=== PATIENT | female | born 1950 | race Caucasian/White ===

== ENCOUNTER → 2016-08-23 | Outpatient (CLI) | payer BC ==
[2016-08-23 15:44] LABS: CH 31.7; CHCM 33.4; HCT 43.5 % (34.0-46.0); HDW 2.27; HGB 14.6 gm/dL (11.4-16.0); MCHC 33.5 g/dL (31.0-37.0); MCV 95.5 fL (80.0-100.0); Mean Platelet Volume 7.3; RBC 4.55 m/uL (3.80-5.40); RDW 12.6 % (11.5-15.5); WBC 10.4 k/uL (3.8-10.6)
== END | disposition home or self-care (01) ==
LOC: LABPAT 14:44
PROVIDERS: ATTEND Otolaryngology
DX: Z01.812 Encounter for preprocedural laboratory examination (principal)
CPT/HCPCS: 85027

== ENCOUNTER 2016-08-28 11:05 | Day surgery (SDC) | payer BC ==
[2016-08-24 11:14] VITALS: BMI 38.0
--- NOTE | 2016-08-28 07:42 | HP ---
DATE OF ADMISSION: Chief complaint is chronic laryngitis with laryngeal lesion. HISTORY OF PRESENT ILLNESS: This patient is a very pleasant 66-year-old female who is well known to my office. She has a long history of chronic laryngitis and recurrent laryngeal lesions. In addition to this, patient has a history of gastroesophageal reflux disorder. On a recent visit, she was complaining of having increased hoarseness over the past several months which had been exacerbated by a recent upper respiratory tract infection. She was taken to surgery approximately a year ago and at that time a cystic lesion which was infected with a fungal-like material was excised. At the time that she was seen in my office, clinical examination included indirect laryngoscopy revealed a suspicious lesion of the larynx which was not completely visualized because of an overhanging epiglottis. Because of the patient's past history of such lesions, it was recommended that she undergo a suspension microlaryngoscopy with excision ( ) vaporization of the lesion of the larynx as well as biopsy. Past medical history reveals patient's has allergies to FIORICET, AVELOX, LEVAQUIN, and CIPRO. Current medications include: 1. Zoloft. 2. Levothyroxine. There is no history of asthma, diabetes mellitus, hypertension. Review of systems positive in respect to the metabolic endocrine system which is positive for hypothyroidism. The remainder of the review of systems is unremarkable. Previous surgeries include bilateral myringotomy with insertion of ventilation tubes, tonsillectomy, adenoidectomy, appendectomy, left knee replacement, suspension microlaryngoscopy with biopsy. The patient is 4 para, 4 , 0 miscarriage and DFC x1. PHYSICAL EXAMINATION: Patient is a pleasant 66-year-old female who is alert and cooperative. HEENT EXAMINATION: Patient is normocephalic, tympanic membranes are normal. Middle ear spaces are free of any fluid or infection. Pupils equal, round and reactive to light and accommodation. Extraocular movements within normal limits. Intranasal examination reveals moderate septal deviation and compensatory hypertrophy of the inferior turbinates. Examination of the oropharynx is unremarkable. Indirect laryngoscopy is as described above in the history of present illness and will not be repeated her. Palpation of the neck, cranial nerves 2 through 12 and remainder of the head and neck exam is within normal limits. CHEST/CARDIOVASCULAR: Both lung tripp are clear to percussion and auscultation. Patient is in regular sinus rhythm. S1 and S2 are present without murmurs, S3s or S4s. Peripheral pulses are bilaterally symmetrical and within normal limits. ABDOMEN: There is no evidence of any masses, megaly or tenderness. Abdomen is soft. Skin is unremarkable. MUSCULOSKELETAL/NEUROLOGICAL are within normal limits. PELVIC/RECTAL EXAM: This is deferred at this time because patient has this done on a regular basis at her family physician's office. The remainder of the physical exam is unremarkable. IMPRESSION: Chronic laryngitis with laryngeal lesion. PLAN: The patient is scheduled to undergo a suspension microlaryngoscopy with biopsy of laryngeal lesion and also CO2 laser vaporization of laryngeal lesion under general anesthesia. Attention RN's in the presurgical area: This patient has an order to received 1000 mg of Ofirmev IV to be given one an intravenous lines has been established. I have not ordered any prophylactic antibiotics such as Ancef or Flagyl. If either one of these medications or any other medication has been ordered in my name, please cancel it, return it to pharmacy and make sure the patient's account is credited. Again, I have not ordered any prophylactic antibiotics for this particular case. I have explained the operation/procedure to the patient, including the risks, benefits, side effects, alternative therapies (including not receiving the proposed treatment or service), the likelihood of the patient achieving his/her goals, and potential recuperation problems for the procedure/sedation/analgesia, as well as any blood products, if indicated. I also explained to the patient the risks, benefits, and side effects of the alternatives, as well as the risks related to not receiving the proposed procedure, care treatment or services.
[~2016-08-28 11:05] MED LIST: FAMOTIDINE 20 MG/2 ML VIAL IV PRN; HYDROmorphone 1 MG/ML 1 ML SYRINGE IVP PRN; LACTATED RINGERS 1,000 ML IV SCH; MIDAZOLAM 2 MG/2 ML VIAL IV PRN; ONDANSETRON 4 MG/2 ML VIAL IVP PRN; Pre Op ABX Message 1 EACH MISC MISCELLANE ONE
[2016-08-28] MEDS ORDERED: LIDOCAINE 1% 20 ML VIAL (10MG/ML) FOR IV START INTRADERMA ONE (11:52)
[2016-08-28] MEDS ORDERED: DEXAMETHASONE SOD PHOSPHATE 10 MG/ML 1 ML VIAL IV ONE (12:00)
[2016-08-28] MEDS ORDERED: ACETAMINOPHEN IV (For NPO) 1,000 MG in EMPTY BAG 1 BAG IVPB ONE (12:00)
[2016-08-28] MEDS ORDERED: SUCCINYLCHOLINE CHLORIDE 100 MG/5 ML SYR IV ONE (13:26)
[2016-08-28] MEDS ORDERED: MIDAZOLAM 2 MG/2 ML VIAL ONE (13:26)
[2016-08-28] MEDS ORDERED: GLYCOPYRROLATE 0.2 MG/ML 2 ML VIAL ONE (13:26)
[2016-08-28] MEDS ORDERED: PROPOFOL 10 MG/ML 20 ML VIAL IV ONE (13:26)
[2016-08-28] MEDS ORDERED: NEOSTIGMINE 1 MG/ML 10 ML VIAL ONE (13:26)
[2016-08-28] MEDS ORDERED: LIDOCAINE 1% INJ 10MG/ML (20 ML MDV) ONE (13:26)
[2016-08-28] MEDS ORDERED: fentaNYL (PF) 50 MCG/ML 2 ML AMP ONE (13:26)
[2016-08-28] MEDS ORDERED: DEXAMETHASONE SOD PHOS (MDV) 100 MG/10 ML VIAL ONE (13:26)
[2016-08-28] MEDS ORDERED: ROCURONIUM BROMIDE 10 MG/ML 10 ML VIAL IV ONE (13:26)
[2016-08-28] MEDS ORDERED: HYDROmorphone (PF) 1 MG/ML ONE (13:26)
[2016-08-28 14:34] VITALS: TEMP 97.2
[2016-08-28] MEDS ORDERED: LACTATED RINGERS 1,000 ML IV ONE (15:03)
[2016-08-28 15:57] VITALS: BP 139/81; PULSE 54; RESP 16
--- NOTE | 2016-08-29 05:35 | OP ---
DATE OF SERVICE: 08/28/2016 SURGEON: GRACE ESCUDERO MD KEY ENTRY OPERATOR: PREOPERATIVE DIAGNOSIS: Chronic laryngitis with laryngeal lesions/suspect polyps versus granulation tissue. POSTOPERATIVE DIAGNOSIS: Chronic laryngitis with laryngeal lesions/suspect polyps versus granulation tissue. OPERATION: Suspension microlaryngoscopy with biopsy of the anterior and posterior right true vocal cord and the anterior commissure and also CO2 laser vaporization of lesions of the anterior and posterior right true vocal cord and anterior commissure. ANESTHESIA: General. ESTIMATED BLOOD LOSS: SPECIMENS REMOVED: COMPLICATIONS: None. OPERATIVE FINDINGS: OPERATIVE PROCEDURE: The patient was placed on the operating table in the supine position. After uneventful induction and endotracheal intubation, satisfactory general anesthesia was obtained. Next, the patient was draped in the usual and customary fashion, following which, after insertion of a mouth guard the anterior commissure laryngoscope was introduced into the hypopharynx and the entire hypopharynx, including the right and left piriform sinus, base of tongue and epiglottis, were inspected and found to be free of any suspicious lesions. The tip of the laryngoscope was then presented at the laryngeal introitus and advanced in an atraumatic fashion. Next, the Lewy apparatus was attached to the handle of the laryngoscope and the laryngoscope was suspended on the patient's chest. 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 Therefore, biopsies were carried out of the anterior commissure, anterior right true vocal cord, and finally of the right posterior true vocal cord. These specimens were sent to pathology in separate containers in formalin for permanent sectioning. Next, using the advanced, CO2 laser on the appropriate standing with the 15-degree wand, the Kd's edema and left true vocal was addressed using CO2 laser to reduce the bulk of the left true vocal cord and in addition to this, the polypoid tissue noted in the anterior commissure in the anterior portion of the right true vocal cord in the posterior portion of the right true vocal cord were also vaporized using the CO2 laser. Care was taken not to laser the right true vocal cord to extensively especially since the left true vocal cord had been lasered. This was done so as to prevent any formation of any webs. No other suspicious lesions were discovered at this time and at this point, the procedure was terminated. The patient was given 10 mg of Decadron during the surgery to reduce any postoperative laryngeal edema. The patient tolerated the procedure well and was returned to the recovery room in satisfactory condition.
== END 2016-08-28 16:50 | disposition home or self-care (01) ==
LOC: OR 11:05
PROVIDERS: ATTEND Otolaryngology
DX: J37.0 Chronic laryngitis (principal); J38.3 Other diseases of vocal cords; E07.9 Disorder of thyroid, unspecified; M19.90 Unspecified osteoarthritis, unspecified site; Z79.52 Long term (current) use of systemic steroids; Z79.899 Other long term (current) drug therapy; Z88.1 Allergy status to other antibiotic agents
CPT/HCPCS: 88305; 31535; J2250; J1100 ×2; J2710; J2405; J2001; J3010; J1170; J0330; J2704; 88312

== ENCOUNTER 2017-05-13 11:47 | Observation (INO) | payer BC, MEDICARE ==
[2017-05-13] MEDS ORDERED: SODIUM CHLORIDE 0.9% 1,000 ML IV STA (11:59)
--- NOTE | 2017-05-13 12:06 | ED ---
General Adult HPI - General Chief complaint: Chest Pain Stated complaint: CHEST PAIN, NO Hx Time Seen by Provider: 05/13/17 11:58 Source: patient, RN notes reviewed, old records reviewed Mode of arrival: wheelchair Limitations: no limitations - History of Present Illness Initial comments: This is a 67-year-old female to the ER for evaluation. Patient presents today for evaluation regards to chest pain. Patient has severe anterior chest pain left jaw pain left arm pain and shoulder pain. Patient has no underlying cardiac risk factors. Nonsmoker no strong family history. Patient states pain started prior to arrival, and has progressed. No nausea no vomiting. No fevers cough or congestion. No recent travel history - Related Data Home Medications Medication Instructions Recorded Confirmed Fish Oil/Dha/Epa [Fish Oil 1,200 1,600 mg PO DAILY 08/31/15 05/13/17 mg Fish Oil] Levothyroxine Sodium [Synthroid] 200 mcg PO DAILY 08/31/15 05/13/17 Sertraline [Zoloft] 50 mg PO DAILY 08/31/15 05/13/17 Aspirin EC [Ecotrin Low Dose] 162 mg PO ONCE 05/13/17 05/13/17 Cetirizine HCl [Zyrtec] 10 mg PO HS 05/13/17 05/13/17 Allergies Allergy/AdvReac Type Severity Reaction Status Date / Time moxifloxacin HCl Allergy Anaphylaxis Verified 05/13/17 13:11 [From Avelox] Review of Systems ROS Statement: Those systems with pertinent positive or pertinent negative responses have been documented in the HPI. ROS Other: All systems not noted in ROS Statement are negative. 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 History of Any Multi-Drug Resistant Organisms: None Reported Past Surgical History: Appendectomy, Heart Catheterization, Joint Replacement, Tonsillectomy Additional Past Surgical History / Comment(s): L knee Replacement Past Anesthesia/Blood Transfusion Reactions: No Reported Reaction Past Psychological History: Anxiety Smoking Status: Never smoker Past Alcohol Use History: None Reported Past Drug Use History: None Reported - Past Family History Mother Family Medical History: Cancer Additional Family Medical History / Comment(s): Breast Father Family Medical History: Cancer Additional Family Medical History / Comment(s): LUNG CANCER General Exam Limitations: no limitations General appearance: alert, in no apparent distress, anxious Head exam: Present: atraumatic, normocephalic, normal inspection Eye exam: Present: normal appearance, PERRL, EOMI. Absent: scleral icterus, conjunctival injection, periorbital swelling ENT exam: Present: normal exam, mucous membranes moist Neck exam: Present: normal inspection. Absent: tenderness, meningismus, lymphadenopathy Respiratory exam: Present: normal lung sounds bilaterally. Absent: respiratory distress, wheezes, rales, rhonchi, stridor Cardiovascular Exam: Present: regular rate, normal rhythm, normal heart sounds. Absent: systolic murmur, diastolic murmur, rubs, gallop, clicks GI/Abdominal exam: Present: soft, normal bowel sounds. Absent: distended, tenderness, guarding, rebound, rigid Extremities exam: Present: normal inspection, full ROM, normal capillary refill. Absent: tenderness, pedal edema, joint swelling, calf tenderness Back exam: Present: normal inspection Neurological exam: Present: alert, oriented X3, CN II-XII intact Psychiatric exam: Present: normal affect, normal mood Skin exam: Present: warm, dry, intact, normal color. Absent: rash Course Vital Signs 05/13/17 05/13/17 05/13/17 11:51 12:04 12:30 Temperature 97.3 F L Pulse Rate 66 69 65 Respiratory 18 18 16 Rate Blood Pressure 181/107 210/98 168/81 O2 Sat by Pulse 95 97 97 Oximetry 05/13/17 05/13/17 13:15 14:46 Temperature Pulse Rate 62 65 Respiratory 18 16 Rate Blood Pressure 169/82 139/73 O2 Sat by Pulse 93 L 97 Oximetry - Reevaluation(s) Reevaluation #1: 05/13/17 14:51 Patient remains a chest pain migrating chest pain at this time. No shortness of breath EKG Findings - EKG Comments: EKG Findings:: EKG shows normal sinus rhythm of 64, UT 190, QRS 78, QTC 420 Medical Decision Making - Medical Decision Making 67 female to ER for evaluation of chest pain. Anterior chest pain radiates from jaw and arm to anterior chest, patient will be admitted for cardiology evaluation, initial CT troponin and EKG are negative. - Lab Data Result diagrams: 05/13/17 12:10 05/13/17 12:10 Lab Results 05/13/17 05/13/17 05/13/17 Range/Units 12:10 12:10 12:10 WBC 12.4 H (3.8-10.6) k/uL RBC 4.69 (3.80-5.40) m/uL Hgb 14.5 (11.4-16.0) gm/dL Hct 44.8 (34.0-46.0) % MCV 95.6 (80.0-100.0) fL MCH 30.9 (25.0-35.0) pg MCHC 32.4 (31.0-37.0) g/dL RDW 13.6 (11.5-15.5) % Plt Count 299 (150-450) k/uL Neutrophils % 65 % Lymphocytes % 26 % Monocytes % 6 % Eosinophils % 1 % Basophils % 1 % Neutrophils # 8.0 H (1.3-7.7) k/uL Lymphocytes # 3.2 (1.0-4.8) k/uL Monocytes # 0.8 (0-1.0) k/uL Eosinophils # 0.1 (0-0.7) k/uL Basophils # 0.1 (0-0.2) k/uL PT (9.0-12.0) sec INR (<1.2) APTT (22.0-30.0) sec D-Dimer (<0.60) mg/L FEU Sodium (137-145) mmol/L Potassium (3.5-5.1) mmol/L Chloride (98-107) mmol/L Carbon Dioxide (22-30) mmol/L Anion Gap mmol/L BUN (7-17) mg/dL Creatinine (0.52-1.04) mg/dL Est GFR (MDRD) Af Amer (>60 ml/min/1.73 sqM) Est GFR (MDRD) Non-Af (>60 ml/min/1.73 sqM) Glucose (74-99) mg/dL Calcium (8.4-10.2) mg/dL Magnesium (1.6-2.3) mg/dL Total Bilirubin (0.2-1.3) mg/dL AST (14-36) U/L ALT (9-52) U/L Alkaline Phosphatase (38-126) U/L Total Creatine Kinase 30 (30-135) U/L CK-MB (CK-2) 0.4 (0.0-2.4) ng/mL CK-MB (CK-2) Rel Index 1.3 Troponin I <0.012 (0.000-0.034) ng/mL Total Protein (6.3-8.2) g/dL Albumin (3.5-5.0) g/dL Lipase (23-300) U/L Blood Type O Positive Blood Type Recheck No Antibody Screen NEGATIVE Spec Expiration Date 05/16/2017230905/13/17 05/13/17 Range/Units 12:10 12:10 WBC (3.8-10.6) k/uL RBC (3.80-5.40) m/uL Hgb (11.4-16.0) gm/dL Hct (34.0-46.0) % MCV (80.0-100.0) fL MCH (25.0-35.0) pg MCHC (31.0-37.0) g/dL RDW (11.5-15.5) % Plt Count (150-450) k/uL Neutrophils % % Lymphocytes % % Monocytes % % Eosinophils % % Basophils % % Neutrophils # (1.3-7.7) k/uL Lymphocytes # (1.0-4.8) k/uL Monocytes # (0-1.0) k/uL Eosinophils # (0-0.7) k/uL Basophils # (0-0.2) k/uL PT 10.8 (9.0-12.0) sec INR 1.1 (<1.2) APTT 23.1 (22.0-30.0) sec D-Dimer 1.20 H (<0.60) mg/L FEU Sodium 138 (137-145) mmol/L Potassium 4.4 (3.5-5.1) mmol/L Chloride 104 (98-107) mmol/L Carbon Dioxide 25 (22-30) mmol/L Anion Gap 9 mmol/L BUN 15 (7-17) mg/dL Creatinine 0.70 (0.52-1.04) mg/dL Est GFR (MDRD) Af Amer >60 (>60 ml/min/1.73 sqM) Est GFR (MDRD) Non-Af >60 (>60 ml/min/1.73 sqM) Glucose 104 H (74-99) mg/dL Calcium 9.4 (8.4-10.2) mg/dL Magnesium 1.8 (1.6-2.3) mg/dL Total Bilirubin 0.5 (0.2-1.3) mg/dL AST 38 H (14-36) U/L ALT 49 (9-52) U/L Alkaline Phosphatase 98 (38-126) U/L Total Creatine Kinase (30-135) U/L CK-MB (CK-2) (0.0-2.4) ng/mL CK-MB (CK-2) Rel Index Troponin I (0.000-0.034) ng/mL Total Protein 7.9 (6.3-8.2) g/dL Albumin 3.9 (3.5-5.0) g/dL Lipase 53 (23-300) U/L Blood Type Blood Type Recheck Antibody Screen Spec Expiration Date - Radiology Data Radiology results: report reviewed (CTA chest negative for dissection or PE, ultrasound of lower extremity negative for DVT), image reviewed Critical Care Time Critical Care Time: Yes Total Critical Care Time: 31 Disposition Clinical Impression: Chest pain Disposition: ADMITTED IP TO THIS HOSP Condition: Undetermined Instructions: Chest Pain (ED) Referrals: Minesh Oliveros MD [Primary Care Provider] - 1-2 days
[2017-05-13] MEDS ORDERED: RX INFO: IV CONTRAST WAS GIVEN 1 EACH MISC MISCELLANE PRN (12:09)
[2017-05-13] MEDS ORDERED: ONDANSETRON 4 MG/2 ML VIAL IVP STA (12:09)
[2017-05-13] MEDS ORDERED: LABETALOL 5 MG/ML VIAL MDV IVP STA (12:09)
[2017-05-13] MEDS ORDERED: MORPHINE SULFATE 10 MG/ML SYRINGE IVP STA (12:09)
[2017-05-13 12:29] LABS: ALT 49 U/L (9-52); AST 38 U/L (14-36); Alkaline Phosphatase 98 U/L (38-126); Anion Gap 9 mmol/L; Blood Urea Nitrogen 15 mg/dL (7-17); Calcium 9.4 mg/dL (8.4-10.2); Carbon Dioxide 25 mmol/L (22-30); Chloride 104 mmol/L (98-107); Glucose 104 mg/dL (74-99); Magnesium 1.8 mg/dL (1.6-2.3); Non-African American GFR(MDRD) >60 (>60 ml/min/1.73 sqM); Potassium 4.4 mmol/L (3.5-5.1); Sodium 138 mmol/L (137-145); Total Bilirubin 0.5 mg/dL (0.2-1.3); Total Protein 7.9 g/dL (6.3-8.2)
[2017-05-13 12:31] LABS: Basophils # (A) 0.1 k/uL (0-0.2); Basophils % (A) 1 %; CHCM 32.6; Eosinophils # (A) 0.1 k/uL (0-0.7); Eosinophils % (A) 1 %; HCT 44.8 % (34.0-46.0); HDW 2.15; HGB 14.5 gm/dL (11.4-16.0); Luc # (Auto) 0.26; Luc % (Auto) 2; Lymphocytes # (A) 3.2 k/uL (1.0-4.8); Lymphocytes % (A) 26 %; MCH 30.9 pg (25.0-35.0); MCHC 32.4 g/dL (31.0-37.0); MCV 95.6 fL (80.0-100.0); Mean Platelet Volume 7.1; Monocytes # (A) 0.8 k/uL (0-1.0); Monocytes % (A) 6 %; Neutrophils % (A) 65 %; RBC 4.69 m/uL (3.80-5.40); RDW 13.6 % (11.5-15.5); WBC 12.4 k/uL (3.8-10.6); WBC (Perox) 11.56
[2017-05-13 12:32] LABS: INR 1.1 (<1.2); Partial Thromboplastin Time 23.1 sec (22.0-30.0); Prothrombin Time 10.8 sec (9.0-12.0)
[2017-05-13 12:44] LABS: Creatine Kinase 30 U/L (30-135)
[2017-05-13 12:56] LABS: Creatine Kinase MB 0.4 ng/mL (0.0-2.4); Troponin I <0.012 ng/mL (0.000-0.034)
--- NOTE | 2017-05-13 13:02 | CT ---
EXAMINATION TYPE: CT angio thoracic/abd aorta DATE OF EXAM: 05/13/2017 COMPARISON: EXAMINATION TYPE: CT angio thoracic/abd aorta DATE OF EXAM: 05/13/2017 COMPARISON: NONE HISTORY: pain between shoulder blades, severe back pain CT DLP: 2954.9 mGycm. Automated Exposure Control for Dose Reduction was Utilized. CONTRAST: CT scan of the thorax, abdomen and pelvis is performed without and with IV Contrast, patient injected with 100 mL of Omnipaque 350. FINDINGS: The lungs are clear. There is no significant axillary, internal mammary, mediastinal or hilar adenopathy. There is no pleural or pericardial fluid. The heart is not enlarged. The aorta is normal in caliber without evidence of dissection. Within the abdomen, the liver is enlarged measuring 21 cm. There is fatty infiltration of the liver. The spleen and gallbladder appear normal. Both adrenal glands appear normal. Both kidneys demonstrate function and appear morphologically normal. The pancreas is unremarkable. The bladder appears normal. The uterus and ovaries are unremarkable. There are scattered diverticula along the left side of the colon. There is no radiographic evidence o f diverticulitis. The appendix is not visualized with certainty. Small bowel loops are normal. There is no free fluid and no free air. There are degenerative changes in the hips, greater on the right than the left. There is mild hypertr ophic spondylosis within the spine. IMPRESSION: 1. NORMAL CTA OF THE AORTA. 2. HEPATOMEGALY AND FATTY INFILTRATION OF THE LIVER. 3. UNCOMPLICATED DIVERTICULOSIS OF THE LEFT SIDE OF THE COLON. 4. MILD DEGENERATIVE CHANGE WITHIN THE SPINE.
--- NOTE | 2017-05-13 14:19 | US ---
EXAMINATION TYPE: US venous doppler duplex LE DATE OF EXAM: 05/13/2017 2:11 PM COMPARISON: NONE CLINICAL HISTORY: Pain. Pain bilateral legs, chest pain, SOB SIDE PERFORMED: Bilateral TECHNIQUE: The lower extremity deep venous system is examined utilizing real time linear array sonog liset with graded compression, doppler sonography and color-flow sonography. VESSELS IMAGED: External Iliac Vein (EIV) Common Femoral Vein Deep Femoral Vein Greater Saphenous Vein * Femoral Vein Popliteal Vein Small Saphenous Vein * Proximal Calf Veins (* superficial vessels) *Technical limitations due to patient's body habitus and patient had a difficult time tolerating comp ressions Right Leg: No evidence of DVT. Complex anechoic area popliteal fossa = 6.8 x 2.5 x 2.5cm, probable m oderate-sized Rowe's cyst Left Leg: No evidence of DVT Grayscale, color doppler, spectral doppler imaging performed of the deep veins of the lower extremiti es. There is normal flow, compressibility, vascular waveforms. IMPRESSION: No ultrasound evidence for acute DVT in either lower extremity.
[2017-05-13] MEDS ORDERED: HEPARIN SODIUM,PORCINE 5,000 UNIT/ML 1 ML VIAL IV ONE (14:49)
[2017-05-13] MEDS ORDERED: ASPIRIN 81 MG PO STA (14:49)
[2017-05-13] MEDS ORDERED: NITROGLYCERIN SL TABS 0.4 MG TAB SUBLINGUAL PRN (14:49)
[2017-05-13] MEDS ORDERED: HEPARIN SODIUM,PORCINE/D5W PMX 25,000 UNIT in DEXTROSE/WATER 1 500ML.BAG IV SCH (15:00)
[2017-05-13 16:12] VITALS: BMI 44.5
[2017-05-13] MEDS: ACETAMINOPHEN TAB 500 MG TAB PO PRN ×2 (18:28→22:49)
[2017-05-13] MEDS: SODIUM CHLORIDE 0.9% 1,000 ML IV SCH (18:29)
[2017-05-13 18:30] LABS: Creatine Kinase 27 U/L (30-135)
[2017-05-13 18:44] LABS: Creatine Kinase MB 0.4 ng/mL (0.0-2.4); Troponin I <0.012 ng/mL (0.000-0.034)
[2017-05-13] MEDS: NITROGLYCERIN OINT 1 INCH/GM PACKET TOPICAL SCH ×2 (20:10→23:42)
[2017-05-13] MEDS: HEPARIN SODIUM,PORCINE 5,000 UNIT/ML 1 ML VIAL IV PRN (21:21)
[2017-05-14 00:25] LABS: Creatine Kinase 26 U/L (30-135)
[2017-05-14 00:38] LABS: Creatine Kinase MB 0.4 ng/mL (0.0-2.4); Troponin I <0.012 ng/mL (0.000-0.034)
[2017-05-14 03:12] LABS: Mean Platelet Volume 6.7
[2017-05-14] MEDS: HEPARIN SODIUM,PORCINE 5,000 UNIT/ML 1 ML VIAL IV PRN (03:29)
[2017-05-14 03:30] LABS: Cholesterol 154 mg/dL (<200); HDL Cholesterol 50 mg/dL (40-60)
[2017-05-14] MEDS: SODIUM CHLORIDE 0.9% 1,000 ML IV SCH (05:32)
[2017-05-14] MEDS: NITROGLYCERIN OINT 1 INCH/GM PACKET TOPICAL SCH (05:36)
[2017-05-14] MEDS ORDERED: ASPIRIN 325 MG TAB PO SCH (09:00)
[2017-05-14] MEDS ORDERED: AMINOPHYLLINE 500 MG/20 ML VIAL IV PRN (09:36)
[2017-05-14] MEDS ORDERED: REGADENOSON 0.4 MG/5 ML SYRINGE IV ONE (09:36)
--- NOTE | 2017-05-14 11:03 | ECHOF ---
Referral Reason: MEASUREMENTS -------- HEIGHT: 170.2 cm WEIGHT: 128.8 kg BP: 149/86 RVIDd: 3.5 cm (< 3.3) IVSd: 1.3 cm (0.6 - 1.1) LVIDd: 4.7 cm (3.9 - 5.3) LVPWd: 1.4 cm (0.6 - 1.1) IVSs: 1.9 cm LVIDs: 3.5 cm LVPWs: 1.6 cm LAESV Index (A-L): 20.39 ml/m Ao Diam: 3.7 cm (2.0 - 3.7) AV Cusp: 2.3 cm (1.5 - 2.6) LA Diam: 2.8 cm (2.7 - 3.8) MV EXCURSION: 18.069 mm (> 18.000) MV EF SLOPE: 137 mm/s (70 - 150) EPSS: 1.7 cm MV E Ubaldo: 0.67 m/s MV DecT: 259 ms MV A Ubaldo: 0.87 m/s MV E/A Ratio: 0.76 RAP: 5.00 mmHg RVSP: 11.77 mmHg FINDINGS -------- Sinus rhythm. This was a technically adequate study. The left ventricular size is normal. There is mild concentric left ventricular hypertrophy. Overa ll left ventricular systolic function is normal with, an EF between 55 - 60 %. The right ventricle is normal in size and function. Normal LA size by volume 22+/-6 ml/m2. The right atrium is normal in size. The aortic valve is trileaflet, and appears structurally normal. No aortic stenosis or regurgitation. The mitral valve is normal. There is trace mitral regurgitation. Trace tricuspid regurgitation present. Right ventricular systolic pressure is normal at < 35 mmHg. There is no evidence of pulmonary hypertension. The pulmonic valve was not well visualized. There is no pulmonic regurgitation present. The aortic root size is normal. IVC Not well visulized. There is no pericardial effusion. CONCLUSIONS -------- 1. Sinus rhythm. 2. This was a technically adequate study. 3. There is mild concentric left ventricular hypertrophy. 4. Overall left ventricular systolic function is normal with, an EF between 55 - 60 %. 5. Normal LA size by volume 22+/-6 ml/m2. 6. The aortic valve is trileaflet, and appears structurally normal. No aortic stenosis or regurgitati on. 7. There is trace mitral regurgitation. 8. Trace tricuspid regurgitation present. 9. Right ventricular systolic pressure is normal at < 35 mmHg. 10. The pulmonic valve was not well visualized. 11. There is no pulmonic regurgitation present. 12. The aortic root size is normal. 13. IVC Not well visulized. 14. There is no pericardial effusion. [employer] PARTS: Filemon Villafuerte RDCS
--- NOTE | 2017-05-14 12:24 | EST ---
EXERCISE STRESS AGE: 67 SEX: F HT: 5'8" WT: 297 PROTOCOL: Lexiscan Cardiolite Stress Test HEART RATE REST: 61 BLOOD PRESSURE REST: 147/93 MAXIMUM HEART RATE ACHIEVED: 78 MAXIMUM BLOOD PRESSURE: 161/109 85% MPHR: 132 100% MPHR: 155 INDICATIONS: Chest pain. CLINICAL INFORMATION: Baseline rhythm is sinus mechanism, rate of 61, normal axis, intervals, normal electrocardiogram. Baseline blood pressure 147/93 mmHg. Patient received injection of Lexiscan. Electrocardiograph monitoring revealed no evidence of diagnostic ischemic ST deviation. Cardiolite was injected per protocol. CONCLUSION: 1. Nondiagnostic electrocardiogram stress testing. 2. Nuclear images will be reported separately. MMODL / IJN: [id number] /
[2017-05-14] MEDS: ASPIRIN 81 MG PO SCH (12:30)
[2017-05-14] MEDS: LISINOPRIL 5 MG TAB PO SCH ×2 (12:30→19:52)
[2017-05-14] MEDS ORDERED: DHA PO SCH (12:45)
[2017-05-14] MEDS ORDERED: FISH OIL PO SCH (12:45)
[2017-05-14] MEDS ORDERED: EPA PO SCH (12:45)
[2017-05-14] MEDS: SERTRALINE 50 MG TAB PO SCH (13:20)
--- NOTE | 2017-05-14 13:30 | P.CRDCN ---
History of Present Illness Consult date: 05/14/17 History of present illness: This is a 67-year-old female with past medical history significant for hypothyroidism. She follows with Dr. Fraser as an outpatient. We have been asked to see her in consultation for complaints of chest pressure yesterday while at [employer]. She states this started as mild pulling type sensation to her left neck, shoulder, back and left upper chest. As the day progressed this seemed to get worse in intensity and was causing shortness of breath. She denies associated nausea, palpitations or diaphoresis. She cannot verbalize any alleviating factors and states movement makes it worse. At the time of my exam she is still complaining of tight feeling to left upper chest and neck. EKG reveals sinus mechanism with no acute ST or T-wave abnormality noted. Cardiac enzymes negative x3, BUN 15, Cr 0.7, potassium 4.4, magnesium 1.8, Hgb 14.5, D-dimer 1.2 CT of chest negative for PE. Blood pressure 149/86 with heart rate 63. Blood pressure has been consistently elevated since admission. Review of Systems CONSTITUTIONAL: Denies fever. Denies chills. EYES: Denies blurred vision. Denies vision changes. Denies eye pain. EARS, NOSE, MOUTH & THROAT: Denies headache. Denies sore throat. Denies ear pain. CARDIOVASCULAR: Complains of constant left upper chest pain. Denies shortness of breath. Denies orthopnea. Denies PND. Denies palpitations. RESPIRATORY: Denies cough. GASTROINTESTINAL: Denies abdominal pain. Denies diarrhea. Denies constipation. Denies nausea. Denies vomitng. MUSCULOSKELETAL: Denies myalgias. INTEGUMENTARY: Denies pruitis. Denies rash. NEUROLOGIC: Denies numbness. Denies tingling. Denies weakness. PSYCHIATRIC: Denies anxiety. Denies depression. ENDOCRINE: Denies fatigue. Denies weight change. Denies polydipsia. Denies polyurina. GENITOURINARY: Denies burning, hematuria or urgency with micturation. HEMATOLOGIC: Denies history of anemia. Denies bleeding. 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 History of Any Multi-Drug Resistant Organisms: None Reported Past Surgical History: Appendectomy, Heart Catheterization, Joint Replacement, Tonsillectomy Additional Past Surgical History / Comment(s): L knee Replacement Past Anesthesia/Blood Transfusion Reactions: No Reported Reaction Smoking Status: Never smoker - Past Family History Mother Family Medical History: Cancer Additional Family Medical History / Comment(s): Breast Father Family Medical History: Cancer Additional Family Medical History / Comment(s): LUNG CANCER Medications and Allergies Home Medications Medication Instructions Recorded Confirmed Type Fish Oil/Dha/Epa [Fish Oil 1,200 1,600 mg PO DAILY 08/31/15 05/13/17 History mg Fish Oil] Levothyroxine Sodium [Synthroid] 200 mcg PO DAILY 08/31/15 05/13/17 History Sertraline [Zoloft] 50 mg PO DAILY 08/31/15 05/13/17 History Aspirin EC [Ecotrin Low Dose] 162 mg PO ONCE 05/13/17 05/13/17 History Cetirizine HCl [Zyrtec] 10 mg PO HS 05/13/17 05/13/17 History Allergies Allergy/AdvReac Type Severity Reaction Status Date / Time moxifloxacin HCl Allergy Anaphylaxis Verified 05/13/17 13:11 [From Avelox] Physical Exam Vitals: Vital Signs Temp Pulse Pulse Resp BP BP Pulse Ox 05/14/17 08:00 98.0 F 63 18 149/86 94 L 05/14/17 07:44 92 L 05/14/17 04:00 18 05/14/17 03:36 98.8 F 59 L 18 164/78 92 L 05/13/17 23:40 18 05/13/17 23:26 98.3 F 66 18 157/77 90 L 05/13/17 20:00 16 05/13/17 19:17 98.4 F 62 16 153/90 93 L 05/13/17 16:49 98 05/13/17 15:38 97.8 F 63 18 148/70 94 L 05/13/17 15:24 66 16 140/80 97 05/13/17 14:46 65 16 139/73 97 05/13/17 13:15 62 18 169/82 93 L 05/13/17 12:30 65 16 168/81 97 05/13/17 12:04 69 18 210/98 97 05/13/17 11:51 97.3 F L 66 18 181/107 95 Intake and Output 05/13/17 05/14/17 05/14/17 22:59 06:59 14:59 Intake Total 236.789 6897.526 Balance 332.391 8341.526 Intake: IV 700 Heparin Sodium,Porcine/ 100 D5w Pmx 25,000 unit In Dextrose/Water 1 500ml. bag @ 7.73 UNITS/KG/HR 19 .98 mls/hr IV .Q24H [facility] Rx#:[id number] Sodium Chloride 0.9% 1, 600 000 ml @ 100 mls/hr IV . Q10H [facility] Rx#:[id number] Intake, IV Titration 118.881 171.526 Amount Heparin Sodium,Porcine/ 118.881 171.526 D5w Pmx 25,000 unit In Dextrose/Water 1 500ml. bag @ 7.73 UNITS/KG/HR 19 .98 mls/hr IV .Q24H [facility] Rx#:[id number] Oral 450 Other: Voiding Method Toilet Toilet Toilet # Voids 1 2 Weight 129 kg GENERAL: This is a 67-year-old female in no apparent distress at the time of my examination. Morbidly obese. HEENT: Head is atraumatic, normocephalic. Pupils are equal, round. Sclerae anicteric. Conjunctivae are clear. Mucous membranes of the mouth are moist. Neck is supple. There is no jugular venous distention. No carotid bruit is heard. LUNGS: Clear to auscultation no wheezes, rales or rhonchi. Positive chest wall tenderness is noted on palpation. HEART: Regular rate and rhythm with short systolic ejection murmur at the base, no rubs or gallops. S1 and S2 heard. ABDOMEN: Soft, nontender. Bowel sounds are heard. No organomegaly noted. EXTREMITIES: 2+ peripheral pulses with no evidence of peripheral edema and no calf tenderness noted. NEUROLOGIC: Patient is awake, alert and oriented x3. Results 05/14/17 02:59 05/13/17 12:10 Cardiac Enzymes 05/13/17 05/13/17 05/13/17 Range/Units 12:10 12:10 17:50 AST 38 H (14-36) U/L CK-MB (CK-2) 0.4 0.4 (0.0-2.4) ng/mL Troponin I <0.012 <0.012 (0.000-0.034) ng/mL 05/13/17 Range/Units 23:40 AST (14-36) U/L CK-MB (CK-2) 0.4 (0.0-2.4) ng/mL Troponin I <0.012 (0.000-0.034) ng/mL Coagulation 05/13/17 05/13/17 05/14/17 Range/Units 12:10 20:55 02:59 PT 10.8 (9.0-12.0) sec APTT 23.1 26.8 31.1 H (22.0-30.0) sec Lipids 05/14/17 Range/Units 02:59 Triglycerides 115 (<150) mg/dL Cholesterol 154 (<200) mg/dL HDL Cholesterol 50 (40-60) mg/dL CBC 05/13/17 05/14/17 Range/Units 12:10 02:59 WBC 12.4 H (3.8-10.6) k/uL RBC 4.69 (3.80-5.40) m/uL Hgb 14.5 (11.4-16.0) gm/dL Hct 44.8 (34.0-46.0) % Plt Count 299 255 (150-450) k/uL Comprehensive Metabolic Panel 05/13/17 Range/Units 12:10 Sodium 138 (137-145) mmol/L Potassium 4.4 (3.5-5.1) mmol/L Chloride 104 (98-107) mmol/L Carbon Dioxide 25 (22-30) mmol/L BUN 15 (7-17) mg/dL Creatinine 0.70 (0.52-1.04) mg/dL Glucose 104 H (74-99) mg/dL Calcium 9.4 (8.4-10.2) mg/dL AST 38 H (14-36) U/L ALT 49 (9-52) U/L Alkaline Phosphatase 98 (38-126) U/L Total Protein 7.9 (6.3-8.2) g/dL Albumin 3.9 (3.5-5.0) g/dL Current Medications Generic Name Dose Route Start Last Admin Trade Name Freq PRN Reason Stop Dose Admin Acetaminophen 500 mg 05/13/17 16:46 05/13/17 22:49 Tylenol Tab PO 500 mg Q4HR PRN Administration Fever and/ or Pain Aspirin 325 mg 05/14/17 09:00 Aspirin PO DAILY [facility] Heparin Sodium (Porcine) 0 unit 05/13/17 14:49 05/14/17 03:29 Heparin IV 4,000 unit Q6HR PRN Administration Low PTT Protocol Heparin Sodium/Dextrose 25,000 500 mls @ 19.98 mls/hr 05/13/17 15:00 03:29 unit/ IV Solution IV 13.73 units/kg/hr .Q24H [facility] 35.49 mls/hr Protocol Titration 7.73 UNITS/KG/HR Sodium Chloride 1,000 mls @ 100 mls/hr 05/13/17 15:00 05/14/17 05:32 Saline 0.9% IV Not Given .Q10H [facility] Miscellaneous Information 1 each 05/13/17 12:09 05/13/17 15:20 Rx Info: Iv Contrast Was Given MISCELLANE 05/15/17 12:09 1 each DAILY PRN Administration Per Protocol Nitroglycerin 0.4 mg 05/13/17 14:49 Nitrostat SUBLINGUAL Q5M PRN Chest Pain Nitroglycerin 0.5 inch 05/13/17 18:00 05/14/17 05:36 Nitro-Bid Oint TOPICAL Not Given Q6HR [facility] Intake and Output 05/13/17 05/14/17 05/14/17 22:59 06:59 14:59 Intake Total 502.329 1512.526 Balance 187.438 1253.526 Intake: IV 700 Heparin Sodium,Porcine/ 100 D5w Pmx 25,000 unit In Dextrose/Water 1 500ml. bag @ 7.73 UNITS/KG/HR 19 .98 mls/hr IV .Q24H [facility] Rx#:[id number] Sodium Chloride 0.9% 1, 600 000 ml @ 100 mls/hr IV . Q10H [facility] Rx#:[id number] Intake, IV Titration 118.881 171.526 Amount Heparin Sodium,Porcine/ 118.881 171.526 D5w Pmx 25,000 unit In Dextrose/Water 1 500ml. bag @ 7.73 UNITS/KG/HR 19 .98 mls/hr IV .Q24H [facility] Rx#:[id number] Oral 450 Other: Voiding Method Toilet Toilet Toilet # Voids 1 2 Weight 129 kg 05/14/17 02:59 05/13/17 12:10 Assessment and Plan Assessment: ASSESSMENT 1. Chest pain, atypical 2. New-onset hypertension 3. Morbid obesity PLAN Obtain 2-D echocardiogram and Doppler study to assess cardiac structure and function. Obtain Lexiscan stress test. We will add lisinopril 5 mg by mouth twice a day and aspirin 81 mg to her daily medication regimen. Further recommendations will be based upon results of diagnostic testing. If this is negative she can follow-up with Dr. Fraser in 2 weeks. Nurse Practitioner note has been reviewed, I agree with a documented findings and plan of care. Patient was seen and examined.
--- NOTE | 2017-05-14 14:19 | P.HPIM ---
History of Present Illness H&P Date: 05/14/17 Chief Complaint: Chest Pain 68 year old female who presented to the emergency room on 05/13/2017 with a chief complaint of chest pain. She states she was at [employer] yesterday morning and started experiencing pain in the left part of her chest. She also states she was having pain in her left neck, shoulder, left upper arm, and into her back. Patient's d-dimer was elevated at 1.20. Thoracic aortic CT was completed in the emergency room which revealed normal CTA of the aorta, hepatomegaly and fatty infiltrates in the liver, uncomplicated diverticulosis on the left side of the colon, and mild degenerative changes within the spine. There was not evidence of a pulmonary embolus. A lower extremity Doppler was completed. It was negative for a DVT bilaterally. However there was evidence for a possible moderate-sized Rowe cyst in the popliteal fossa on the right leg. The patients troponins were negative 3. EKG shows normal sinus rhythm with no ST abnormalities. The patient was seen and examined on rounds this morning with Dr. Oliveros. The patient states she has had a few episodes recently where her face would get very flushed and she would get diaphoretic. Occasionally she also had shortness of breath with these episodes. She states she was out shopping a few weeks ago with a family member who noticed that she was very flushed. The patient stated she noticed she was short of breath also although she was not doing much physical activity. The patient is having pain upon palpation of the left chest wall, specifically within the area near ribs 1 through 4 on the left side. The patient is unable to describe the characteristics of the pain. The patient denies any nausea or vomiting. The patient states she had a cardiac catheterization in the past, although she is unable to recall when, but states that her vessels were normal. She also underwent a stress test in November 2015 which was normal. Her blood pressure has been elevated since admission with systolic blood pressures ranging from 140 to 160s. Review of Systems GENERAL: Patient denies fever. Denies chills. EYES: Denies blurred vision. Denies vision changes. Denies eye pain. EARS, NOSE, MOUTH, & THROAT: Denies headache. Denies sore throat. Denies ear pain. RESPIRATORY: Positive for recent episodes of shortness of breath. Currently denies shortness of breath. Denies cough. Denies sputum production. Denies hemoptysis. CARDIOVASCULAR: Positive for left upper chest pain. Denies palpitations. Denies arrhythmias. GASTROINTESTINAL: Denies abdominal pain. Denies diarrhea. Denies constipation. Denies nausea. Denies vomiting. Denies heartburn. Denies blood in the stool. GENITOURINARY: Denies urinary frequency. Denies burning. Denies dysuria. Denies cloudy urine. Denies blood in the urine. MUSCULOSKELETAL: Denies myalgias. Denies joint swelling. Denies decreased range of motion beyond patients baseline. INTEGUMENTARY: Denies pruitis. Denies rash. PSYCHIATRIC: Denies suicidal or homicial ideations. ENDOCRINE: Positive for multiple recent episodes of flushed face and diaphoresis. Denies weight change. Denies polydipsia. Denies polyuria. HEMATOLOGIC: Denies bleeding disorders. 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 History of Any Multi-Drug Resistant Organisms: None Reported Past Surgical History: Appendectomy, Heart Catheterization, Joint Replacement, Tonsillectomy Additional Past Surgical History / Comment(s): L knee Replacement Past Anesthesia/Blood Transfusion Reactions: No Reported Reaction Smoking Status: Never smoker - Past Family History Mother Family Medical History: Cancer Additional Family Medical History / Comment(s): Breast Father Family Medical History: Cancer Additional Family Medical History / Comment(s): LUNG CANCER Medications and Allergies Home Medications Medication Instructions Recorded Confirmed Type Fish Oil/Dha/Epa [Fish Oil 1,200 1,600 mg PO DAILY 08/31/15 05/13/17 History mg Fish Oil] Levothyroxine Sodium [Synthroid] 200 mcg PO DAILY 08/31/15 05/13/17 History Sertraline [Zoloft] 50 mg PO DAILY 08/31/15 05/13/17 History Aspirin EC [Ecotrin Low Dose] 162 mg PO ONCE 05/13/17 05/13/17 History Cetirizine HCl [Zyrtec] 10 mg PO HS 05/13/17 05/13/17 History Allergies Allergy/AdvReac Type Severity Reaction Status Date / Time moxifloxacin HCl Allergy Anaphylaxis Verified 05/13/17 13:11 [From Avelox] Physical Exam Vitals: Vital Signs Temp Pulse Pulse Resp BP BP Pulse Ox 05/14/17 08:00 98.0 F 63 18 149/86 94 L 05/14/17 07:44 92 L 05/14/17 04:00 18 05/14/17 03:36 98.8 F 59 L 18 164/78 92 L 05/13/17 23:40 18 05/13/17 23:26 98.3 F 66 18 157/77 90 L 05/13/17 20:00 16 05/13/17 19:17 98.4 F 62 16 153/90 93 L 05/13/17 16:49 98 05/13/17 15:38 97.8 F 63 18 148/70 94 L 05/13/17 15:24 66 16 140/80 97 05/13/17 14:46 65 16 139/73 97 Intake and Output 05/13/17 05/14/17 05/14/17 22:59 06:59 14:59 Intake Total 311.507 2219.526 360 Balance 707.416 5498.526 360 Intake: IV 700 Heparin Sodium,Porcine/ 100 D5w Pmx 25,000 unit In Dextrose/Water 1 500ml. bag @ 7.73 UNITS/KG/HR 19 .98 mls/hr IV .Q24H [facility] Rx#:[id number] Sodium Chloride 0.9% 1, 600 000 ml @ 100 mls/hr IV . Q10H [facility] Rx#:[id number] Intake, IV Titration 118.881 171.526 Amount Heparin Sodium,Porcine/ 118.881 171.526 D5w Pmx 25,000 unit In Dextrose/Water 1 500ml. bag @ 7.73 UNITS/KG/HR 19 .98 mls/hr IV .Q24H [facility] Rx#:[id number] Oral 450 360 Other: Voiding Method Toilet Toilet Toilet # Voids 1 2 Weight 129 kg GENERAL: This is a 67-year-old female in no apparent distress at the time of examination. Pleasant and cooperative. HEENT: Head is atraumatic, normocephalic. Pupils are equal, round, and reactive to light. Sclerae anicteric. Conjunctivae are clear. Mucus membranes of the mouth are moist. Neck is supple. RESPIRATORY: Clear to ausculation. No wheezes, rales, or rhonchi. No use of accessory muscles. Patient maintaining oxygen saturation greater than 92%. Positive chest wall tenderness and pain is noted upon palpation of left side of chest. CARDIOVASCULAR: Regular rate and rhythm. S1 and S2 noted. Systolic murmur. No JVD noted. No S3 or S4 noted. GASTROINTESTINAL: No distention noted. Abdomen soft and round. Normal active bowel sounds auscultated x4 quadrants. No pain or tenderness noted upon palpation. INTEGUMENTARY: No cyanosis. No jaundice. No rashes noted. No cellulitis noted. EXTREMITIES: 2+ peripheral pulses. No evidence of peripheral edema. No calf tenderness noted. NEUROLOGIC: Cranial nerves II-XII intact. PSYCHIATRIC: Awake, alert, and oriented X 3. Appropriate affect. Intact judgement and insight. Results CBC & Chem 7: 05/14/17 02:59 05/13/17 12:10 Labs: Abnormal Lab Results - Last 24 Hours (Table) 05/13/17 05/13/17 05/14/17 Range/Units 17:50 23:40 02:59 APTT 31.1 H (22.0-30.0) sec Total Creatine Kinase 27 L 26 L (30-135) U/L TSH (0.465-4.680) mIU/L 05/14/17 Range/Units 02:59 APTT (22.0-30.0) sec Total Creatine Kinase (30-135) U/L TSH 6.660 H (0.465-4.680) mIU/L Thrombosis Risk Factor Assmnt - Choose All That Apply Any of the Below Risk Factors Present?: Yes Each Factor Represents 1 point: Obesity (BMI >25) Other Risk Factors: Yes Each Risk Factor Represents 2 Points: Age 61-74 years Thrombosis Risk Factor Assessment Total Risk Factor Score: 3 Thrombosis Risk Factor Assessment Level: Moderate Risk Assessment and Plan Plan: ASSESSMENT: Chest pain, atypical, present on admission, troponins negative x3, possible costochondritis Elevated d-dimer, CT of the chest negative for PE New-onset hypertension Unstable hypothyroidism, TSH 6.660 Multiple recent episodes of diaphoresis, shortness of breath, and flushing of the face, may be secondary to unstable thyroid disease History of osteoarthritis PLAN: -Cardiology on consult. Appreciate recommendations and input -Await results of stress test -Patient started on lisinopril per cardiology for hypertension -Increase Synthroid from 200mcg daily to 225mcg daily -Obtain ultrasound of the thyroid to r/o mass -Begin Indocin 50 mg twice a day -Home meds as appropriate -Monitor labs -GI prophylaxis: Pepcid 20 mg by mouth twice a day -DVT prophylaxis: Heparin 5000 units subcu every 8 hours -Monitor vital signs and address as appropriate -Discharge planning: Patient to return home Nurse practitioner note has been reviewed by physician. Signing provider agrees with the documented findings, assessment, and plan of care.
[2017-05-14] MEDS: LEVOTHYROXINE 125 MCG TAB PO SCH (14:28)
[2017-05-14] MEDS: LEVOTHYROXINE 100 MCG TAB PO SCH (14:28)
--- NOTE | 2017-05-14 14:39 | US ---
EXAMINATION TYPE: US thyroid st tissue head/neck DATE OF EXAM: 05/14/2017 COMPARISON: NONE CLINICAL HISTORY: Hypothyroidism, elevated TSH, r/o mass. Patient states being on thyroid medication for 40 years GLAND SIZE: Right Lobe: 3.0 x 0.9 x 1.0 cm Overall Parenchyma: heterogenous Left Lobe: 2.4 x 1.0 x 1.3 cm Overall Parenchyma: heterogeneous Isthmus Thickness: 0.3 cm NODULES RIGHT: # of nodules measured on right: 0 LEFT: # of nodules measured on left: 0 ISTHMUS: # of nodules measured in the isthmus: 0 Bilateral neck scanned. Right lymph node = 1.9 x 1.1 x 0.7 cm Bilateral thyroid lobes appear small in size and heterogenous in appearance. IMPRESSION: Marked heterogeneity and atrophy of the thyroid gland suggests underlying thyroiditis, atrophy. No di screte thyroid nodule.
[2017-05-14] MEDS: ACETAMINOPHEN TAB 500 MG TAB PO PRN ×2 (15:21→22:18)
--- NOTE | 2017-05-14 16:09 | NM ---
EXAMINATION TYPE: NM stress lexiscan cardiolite DATE OF EXAM: 05/14/2017 COMPARISON: NONE HISTORY: Chest pain TECHNIQUE: After the intravenous administration of 12.0 mCi Tc 99m Sestamibi - Cardiolite resting SP ECT images acquired 45 minutes post injection. The patient received 0.4mg Lexiscan, 29.6 mCi Tc 99m Sestamibi - Stress images obtained [address] injection FINDINGS: No fixed or reversible perfusion defects are evident. Gated wall motion is normal. The ejection fract ion of 54% is normal. Polar maps suggest an inferior wall defect. Axial SPECT images suggests this appears preserved. Mild fixed defect on additional SPECT imaging appears to be diaphragm artifact. Rotating raw data images a re reviewed. Defect is likely present due to the diaphragm. IMPRESSION: 1. No suspicious fixed or reversible perfusion defects are evident. 2. Gated wall motion appears normal. 3. Ejection fraction of 54% is normal. 4. Suspected artifact at the inferior wall due to the diaphragm. Correlate for any EKG changes.
[2017-05-14] MEDS: HEPARIN SODIUM,PORCINE 5,000 UNIT/ML 1 ML VIAL SQ SCH ×2 (16:54→23:56)
[2017-05-14] MEDS ORDERED: LORATADINE 10 MG TAB PO SCH (21:00)
[2017-05-14] MEDS: INDOMETHACIN 25 MG CAP PO SCH (22:16)
[2017-05-14] MEDS: FAMOTIDINE 20 MG TAB PO SCH (22:45)
[2017-05-14 23:59] VITALS: RESP 18
[2017-05-15] MEDS: LEVOTHYROXINE 100 MCG TAB PO SCH (06:11)
[2017-05-15] MEDS: LEVOTHYROXINE 125 MCG TAB PO SCH (06:11)
[2017-05-15] MEDS ORDERED: LEVOTHYROXINE 125 MCG TAB PO SCH (06:30)
[2017-05-15] MEDS ORDERED: LEVOTHYROXINE 100 MCG TAB PO SCH (06:30)
[2017-05-15 07:39] LABS: Mean Platelet Volume 6.3
[2017-05-15 07:54] VITALS: BP 157/83; PULSE 52; TEMP 97.4
[2017-05-15] MEDS: HEPARIN SODIUM,PORCINE 5,000 UNIT/ML 1 ML VIAL SQ SCH (08:25)
[2017-05-15] MEDS: ASPIRIN 81 MG PO SCH (08:26)
[2017-05-15] MEDS: FAMOTIDINE 20 MG TAB PO SCH (08:26)
[2017-05-15] MEDS: INDOMETHACIN 25 MG CAP PO SCH (08:26)
[2017-05-15] MEDS: LISINOPRIL 5 MG TAB PO SCH (08:26)
[2017-05-15] MEDS: SERTRALINE 50 MG TAB PO SCH (08:26)
--- NOTE | 2017-05-15 09:52 | P.DS ---
Providers Date of admission: 05/13/17 14:49 Expected date of discharge: 05/15/17 Attending physician: Minesh Oliveros Primary care physician: Minesh Oliveros [facility] Course: 68 year old female who presented to the emergency room on 05/13/2017 with a chief complaint of chest pain. She states she was at [employer] yesterday morning and started experiencing pain in the left part of her chest. She also states she was having pain in her left neck, shoulder, left upper arm, and into her back. Patient's d-dimer was elevated at 1.20. Thoracic aortic CT was completed in the emergency room which revealed normal CTA of the aorta, hepatomegaly and fatty infiltrates in the liver, uncomplicated diverticulosis on the left side of the colon, and mild degenerative changes within the spine. There was not evidence of a pulmonary embolus. A lower extremity Doppler was completed. It was negative for a DVT bilaterally. However there was evidence for a possible moderate-sized Rowe cyst in the popliteal fossa on the right leg. The patients troponins were negative 3. EKG shows normal sinus rhythm with no ST abnormalities. The patient states she has had a few episodes recently where her face would get very flushed and she would get diaphoretic. Occasionally she also had shortness of breath with these episodes. She states she was out shopping a few weeks ago with a family member who noticed that she was very flushed. The patient stated she noticed she was short of breath also although she was not doing much physical activity. The patient is having pain upon palpation of the left chest wall, specifically within the area near ribs 1 through 4 on the left side, which has improved since admission. The patient is unable to describe the characteristics of the pain. The patient denies any nausea or vomiting. The patient states she had a cardiac catheterization in the past, although she is unable to recall when, but states that her vessels were normal. She also underwent a stress test in November 2015 which was normal. Her blood pressure has been elevated since admission with systolic blood pressures ranging from 140 to 160s. She was started on lisinopril 5 mg twice a day per cardiology. The patient underwent a Lexiscan stress test on 05/14/2017 which was negative. The patient was started on Indocin 50 mg by mouth twice a day. Thyroid panel was completed and revealed TSH of 6.660. Ultrasound of the thyroid did not reveal any masses but did show atrophy of the thyroid gland. Originally the patients thyroid dose was increased to 225mcg daily, but Dr. Oliveros decided to send the patient home on 200mcg and for the prescription to read dispense as written. The patient was informed that she is to only take the brand name Synthroid and not to take the generic form. The patient was deemed stable for discharge per Dr. Oliveros. DISCHARGE DIAGNOSIS: Chest pain, atypical, present on admission, troponins negative x3, Lexiscan stress test negative, more likely exhibiting signs and symptoms of costochondritis Elevated d-dimer, CT of the chest negative for PE New-onset hypertension Unstable hypothyroidism, TSH 6.660, ultrasound of the thyroid negative for mass but does show atrophy of thyroid gland. Multiple recent episodes of diaphoresis, shortness of breath, and flushing of the face, may be secondary to unstable thyroid disease History of osteoarthritis The above impression and plan of care have been discussed and directed by signing physician. Faustina Rowe, nurse practitioner, acting as scribe for signing physician. Patient Condition at Discharge: Stable Plan - Discharge Summary New Discharge Prescriptions: New Famotidine [Pepcid] 20 mg PO BID #60 tab Indomethacin [Indocin] 50 mg PO BID #14 cap Levothyroxine Sodium [Synthroid] 200 mcg PO DAILY #90 tablet Lisinopril [Zestril] 5 mg PO BID #60 tab Continue Sertraline [Zoloft] 50 mg PO DAILY Fish Oil/Dha/Epa [Fish Oil 1,200 mg Fish Oil] 1,600 mg PO DAILY Aspirin EC [Ecotrin Low Dose] 162 mg PO ONCE Cetirizine HCl [Zyrtec] 10 mg PO HS Discontinued Levothyroxine Sodium [Synthroid] 200 mcg PO DAILY Discharge Medication List Fish Oil/Dha/Epa [Fish Oil 1,200 mg Fish Oil] 1,600 mg PO DAILY 08/31/15 [ History] Sertraline [Zoloft] 50 mg PO DAILY 08/31/15 [History] Aspirin EC [Ecotrin Low Dose] 162 mg PO ONCE 05/13/17 [History] Cetirizine HCl [Zyrtec] 10 mg PO HS 05/13/17 [History] Famotidine [Pepcid] 20 mg PO BID #60 tab 05/15/17 [Rx] Indomethacin [Indocin] 50 mg PO BID #14 cap 05/15/17 [Rx] Levothyroxine Sodium [Synthroid] 200 mcg PO DAILY #90 tablet 05/15/17 [Rx] Lisinopril [Zestril] 5 mg PO BID #60 tab 05/15/17 [Rx] Follow up Appointment(s)/Referral(s): Michael Fraser MD [STAFF PHYSICIAN] - 06/01/17 9:45 am Minesh Oliveros MD [Primary Care Provider] - 3 Days Patient Instructions/Handouts: Chest Pain (ED) Discharge Disposition: HOME SELF-CARE
== END 2017-05-15 11:03 | disposition home or self-care (01) ==
LOC: EC 11:47 → 3OBS 14:49
PROVIDERS: ADMIT Family Medicine; ATTEND Family Medicine
DX: R07.89 Other chest pain (principal); R68.84 Jaw pain; M79.602 Pain in left arm; M19.90 Unspecified osteoarthritis, unspecified site; F41.9 Anxiety disorder, unspecified; E66.01 Morbid (severe) obesity due to excess calories; I10 Essential (primary) hypertension; E03.4 Atrophy of thyroid (acquired); K57.30 Diverticulosis of large intestine without perforation or abscess without bleeding; Z88.3 Allergy status to other anti-infective agents; Z79.899 Other long term (current) drug therapy; Z79.82 Long term (current) use of aspirin; Z68.41 Body mass index [BMI] 40.0-44.9, adult
CPT/HCPCS: 96366 ×2; 96372; 96376 ×3; 96361; 96365; 96375; 99291; 36415; 94760; 93005; 93017; 93306; 86900; 86901; 85379; 84439; 80061; 80053; 84443; 82550; 82553; 83690; 83735; 84484; 85025; 85049 ×2; 85610; 85730 ×2; 86850; 76536; 93970; 75635; 71275; 78452; G0378 ×3; A9500; J1644 ×4; Q9967; J2270; J2405; J2785

== ENCOUNTER → 2017-07-31 | Outpatient (CLI) | payer MEDICARE ==
--- NOTE | 2017-07-31 18:00 | WWHP ---
[facility] - HISTORY AND PHYSICAL DATE OF DICTATION: 07/31/2017 Please have a copy sent to Dr. Oc Oliveros. CHIEF COMPLAINT: The patient is here for her routine gynecologic exam and mammogram. HPI: This is a 67-year-old G4, P4, with an LMP of 2006. The patient is without gynecologic complaints. The patient states she continues to do to do well on Zoloft, which she has taken for many years for anxiety. She has had issues when she discontinues the Zoloft. PAST MEDICAL HISTORY: Anxiety, hypothyroidism, chronic sinus problems and has her seasonal allergies and chronic hypertension. MEDICATIONS: Synthroid 200 mcg daily, blood pressure medication which she does not know the name of, she has taken twice a day. Pepcid generic p.r.n., Zoloft 50 mg daily, melatonin p.r.n., fish oil supplement daily, multivitamin daily. ALLERGIES: TO AVELOX. PAST SURGICAL HISTORY: Left knee replacement surgery, sinus surgery and appendectomy in the past, colonoscopy 2015 and this was her fourth one. PAST [employer] HISTORY: She has been menopausal since 2005 and has no history of STDs. SOCIAL HISTORY: She denies tobacco and drug use and has 1 to 2 alcohol containing drinks per month. She has been since 1970 and is retired. FAMILY HISTORY: Mother had breast cancer in her 50s and grandmother had diabetes. REVIEW OF SYSTEMS: She has gained about 14 pounds over the last year. RESPIRATORY: She has occasional allergy type symptoms. She denies cardiac or GI problems. She denies maltreatment or falling. : She had some urinary leakage with hard coughing when she had the flu a few months ago. This did resolve. PHYSICAL EXAM: Blood pressure 141/86, height 5 feet 8 inches, weight 298 pounds. BMI 45. Temperature 98.0, pulse 69. This is a well-developed, obese white female who is alert and oriented x3, in no acute distress. HEENT: Within normal limits. NECK: Supple without mass or thyromegaly. Chest and LUNGS: Clear to auscultation. HEART: Regular rate and rhythm. Breasts are without mass or discharge. There is a benign-appearing mole on the right areolar at the 12 o'clock position measuring approximately 9 mm in size. The patient states she has had this mole for more than 25 years and it remains unchanged. Axillary exam is negative for adenopathy. Back negative for CVA tenderness. ABDOMEN: Obese, soft, nontender, without palpable masses. Pelvic exam: External genitalia reveals mild atrophy without lesions. Cervix and vagina reveals mild atrophy without lesions. There is no evidence of prolapse. The uterus is mid position nongravid size and nontender. There are no palpable adnexal masses or tenderness. Bimanual examination is somewhat limited secondary to her size. Rectovaginal exam is negative for mass or tenderness and is negative for occult blood. Extremities nontender. IMPRESSION: 1. 67-year-old menopausal female with normal gynecologic exam. 2. History of anxiety, doing well on Zoloft. PLAN: 1. Pap smear was deferred since she had a normal 1 less than 2 years ago. 2. Self-breast examination was discussed. 3. Mammogram will be done today. 4. Continue Zoloft 50 mg daily and a prescription was given to the patient for this. 5. Osteoporosis prevention was discussed. We will plan on repeating bone density testing next year. 6. She is declining flu shots and has not gotten one this year. 7. She will return in 1 year. MMODL / IJN: [id number] /
--- NOTE | 2017-08-01 08:48 | MM ---
Reason for exam: screening (asymptomatic). Last mammogram was performed 1 year and 4 months ago. History: Patient is postmenopausal. Family history of breast cancer in mother. Physical Findings: A clinical breast exam by your physician is recommended on an annual basis and results should be correlated with mammographic findings. MG Screening Mammo w CAD Bilateral CC and MLO view(s) were taken. Prior study comparison: March 28, 2016, bilateral MG screening mammo w CAD. January 19, 2015, bilateral MG screening mammo w CAD. The breast tissue is almost entirely fat. There are benign round circumscribed retroareolar masses stable back to 2013. No suspicious abnormality. ASSESSMENT: Benign, BI-RAD 2 RECOMMENDATION: Routine screening mammogram of both breasts in 1 year.
== END | disposition home or self-care (01) ==
LOC: WWCWWP 14:06
PROVIDERS: ATTEND Obstetrics & Gynecology
DX: Z12.31 Encounter for screening mammogram for malignant neoplasm of breast (principal)
CPT/HCPCS: 77067